=== PATIENT | female | born 1955 | race Caucasian/White ===

== ENCOUNTER → 2017-01-28 | Outpatient (CLI) | payer OTHER ==
[~2017-01-28] MED LIST: ATR20T PO; BISO1TAB6 PO; BUDE10.22 IH; CHOL2000 PO; FURO20TA4 PO; GLYB1.253 PO; HYDR-2890 PO; HYDR-3583 PO; LVT.088T PO; MELO-198 PO; METF-380 PO; MULT1CAP27 PO; OMEP40CA36 PO; POTA8TAB6 PO; REVATIO PO; RT-ALBUTEROL SULF 2.5 MG/3 ML PRE-MIX VIAL IH ONE; VLS80C PO
== END ==
LOC: RT 09:41
PROVIDERS: ATTEND Nurse Practitioner Family
DX: J42 Unspecified chronic bronchitis (principal); R06.00 Dyspnea, unspecified; D86.9 Sarcoidosis, unspecified; I27.2 Other secondary pulmonary hypertension
CPT/HCPCS: 94060; 94640; 94726; 94729

== ENCOUNTER → 2017-02-23 | Outpatient (CLI) | payer OTHER ==
[~2017-02-23] MED LIST changes: -RT-ALBUTEROL SULF 2.5 MG/3 ML PRE-MIX VIAL IH ONE
--- NOTE | 2017-02-23 18:04 | Diagnostic Imaging Report ---
EXAMINATION: AP view of the pelvis and the AP and frog lateral views of the hip joints bilaterally. INDICATION: Pelvic and right groin pain. FINDINGS: AP pelvis demonstrates minimal degenerative changes of SI joints and there is transitional lumbosacral junction with a partially sacralized L5 suggested. There are also calcifications in the left side of the pelvis which could be phlebolith. The right hip demonstrates mild degenerative changes with no significant joint space loss. The left hip demonstrates also mild degenerative changes with no joint space loss. Degenerative mild sclerosis at the symphysis pubis seen. IMPRESSION: Generally mild degenerative changes. No acute process. Dictated by: Dictated on workstation # [id number]
== END ==
LOC: RAD 14:38
PROVIDERS: ATTEND Internal Medicine
DX: M25.552 Pain in left hip (principal); M25.551 Pain in right hip; R10.30 Lower abdominal pain, unspecified
CPT/HCPCS: 73523

== ENCOUNTER → 2018-07-06 | Outpatient (CLI) | payer OTHER ==
--- NOTE | 2018-07-06 18:27 | Diagnostic Imaging Report ---
INDICATION: Routine screening. COMPARISON is made with prior mammograms from 02/05/2016 and 11/09/2012. 2-D and 3-D bilateral screening mammography was performed with CAD. Scattered fibroglandular densities are identified bilaterally. There are scattered benign-appearing calcifications bilaterally. No mass or malignant appearing microcalcifications are seen. The axillae are unremarkable. IMPRESSION: BI-RADS category 2. No mammographic features suspicious for malignancy are identified. ACR BI-RADS Category 2: Benign findings. Result letter will be mailed to the patient. Note: At least 10% of breast cancer is not imaged by mammography. Dictated by: Dictated on workstation # [id number]
== END ==
LOC: RAD 13:12
PROVIDERS: ATTEND Internal Medicine
DX: Z12.31 Encounter for screening mammogram for malignant neoplasm of breast (principal)
CPT/HCPCS: 77067

== ENCOUNTER → 2018-12-10 | Outpatient (CLI) | payer OTHER ==
--- NOTE | 2018-12-10 11:56 | Diagnostic Imaging Report ---
PROCEDURE: US abdomen complete. TECHNIQUE: Multiple real-time grayscale images were obtained over the abdomen in various projections. INDICATION: Generalized abdominal pain. COMPARISON: None available. FINDINGS: The liver is mildly enlarged measuring greater than 19 cm in length. The liver demonstrates diffusely increased echogenicity with poor acoustic transmission. No focal hepatic mass identified within limits of this exam. The gallbladder is not visualized, surgically absent per provided history. The common bile duct is unable to be visualized. The pancreas was predominantly obscured by overlying bowel gas. The spleen is borderline enlarged measuring 13.6 x 5.5 x 5.1 cm. No focal splenic mass. The abdominal aorta is obscured by overlying bowel gas. Minimally visualized portions of inferior vena cava are unremarkable. The bilateral kidneys are within normal limits in size without evidence of hydronephrosis. No significant free fluid. Negative sonographic Andersen sign. IMPRESSION: Mild hepatosplenomegaly. Fatty infiltration of the liver. Cholecystectomy. Dictated by: Dictated on workstation # [id number]
== END ==
LOC: RAD 08:05
PROVIDERS: ATTEND Internal Medicine
DX: K76.0 Fatty (change of) liver, not elsewhere classified (principal); Z90.49 Acquired absence of other specified parts of digestive tract
CPT/HCPCS: 76700

== ENCOUNTER 2019-02-25 10:25 | Outpatient (RCR) | payer OTHER ==
[2019-02-08 11:52] LABS: ABSOLUTE RETIC # 59 10e9/L (24-90); BASOPHILS % (AUTO) 0 % (0-10); EOSINOPHILS # (AUTO) 0.2 10^3/uL (0.0-0.3); EOSINOPHILS % (AUTO) 5 % (0-10); HEMATOCRIT 31 % (35-52); HEMOGLOBIN 9.9 G/DL (11.5-16.0); LYMPHOCYTES % (AUTO) 29 % (12-44); MEAN CORPUSCULAR HEMOGLOBIN 28 PG (25-34); MEAN CORPUSCULAR HGB CONC 32 G/DL (32-36); MEAN CORPUSCULAR VOLUME 90 FL (80-99); MEAN PLATELET VOLUME 10.6 FL (7.4-10.4); MONOCYTES # (AUTO) 0.3 X 10^3 (0.0-1.0); MONOCYTES % (AUTO) 9 % (0-12); NEUTROPHILS # (AUTO) 1.9 X 10^3 (1.8-7.8); NEUTROPHILS % (AUTO) 57 % (42-75); PLATELET COUNT 91 10^3/uL (130-400); RED CELL DISTRIBUTION WIDTH 14.2 % (10.0-14.5); RETICULOCYTE % 1.69 % (0.50-2.40); WHITE BLOOD COUNT 3.4 10^3/uL (4.3-11.0)
[2019-02-08 12:43] LABS: BASOPHILS % (MANUAL) 0 %; EOSINOPHILS % (MANUAL) 6 %; LYMPHOCYTES % (MANUAL) 25 %; MONOCYTES % (MANUAL) 4 %; NEUTROPHILS % (MANUAL) 65 %
[2019-02-08 12:44] LABS: ELLIPT/OVALOCYTES SLIGHT
[~2019-02-25 10:25] MED LIST changes: +LIDOCAINE 1% 20 ML (XYLOCAINE) VIAL CANCER CTR INJ ONE
== END 2019-04-10 | disposition home or self-care (01) ==
LOC: ONC 10:25
PROVIDERS: ATTEND Internal Medicine Hematology & Oncology
DX: D64.9 Anemia, unspecified (principal); D69.6 Thrombocytopenia, unspecified; D3A.090 Benign carcinoid tumor of the bronchus and lung; E11.9 Type 2 diabetes mellitus without complications; J44.9 Chronic obstructive pulmonary disease, unspecified; I10 Essential (primary) hypertension; E03.9 Hypothyroidism, unspecified; I27.20 Pulmonary hypertension, unspecified; D86.9 Sarcoidosis, unspecified; Z79.84 Long term (current) use of oral hypoglycemic drugs; Z79.899 Other long term (current) drug therapy
CPT/HCPCS: 36415; 38222; 82728; 83540; 85007; 85027; 85045; 88184; 88305; 88311; 88313; 99213; 99214

== ENCOUNTER 2019-06-07 14:51 | Outpatient (RCR) | payer OTHER ==
[2019-05-26 09:36] LABS: ABSOLUTE RETIC # 61 10e9/L (24-90); BASOPHILS % (AUTO) 1 % (0-10); EOSINOPHILS # (AUTO) 0.2 10^3/uL (0.0-0.3); EOSINOPHILS % (AUTO) 5 % (0-10); HEMATOCRIT 34 % (35-52); LYMPHOCYTES # (AUTO) 0.9 X 10^3 (1.0-4.0); LYMPHOCYTES % (AUTO) 24 % (12-44); MEAN CORPUSCULAR HEMOGLOBIN 29 PG (25-34); MEAN CORPUSCULAR HGB CONC 32 G/DL (32-36); MEAN CORPUSCULAR VOLUME 89 FL (80-99); MEAN PLATELET VOLUME 10.5 FL (7.4-10.4); MONOCYTES # (AUTO) 0.5 X 10^3 (0.0-1.0); MONOCYTES % (AUTO) 13 % (0-12); NEUTROPHILS # (AUTO) 2.2 X 10^3 (1.8-7.8); NEUTROPHILS % (AUTO) 58 % (42-75); PLATELET COUNT 87 10^3/uL (130-400); RED CELL DISTRIBUTION WIDTH 13.8 % (10.0-14.5); RETICULOCYTE % 1.62 % (0.50-2.40); WHITE BLOOD COUNT 3.8 10^3/uL (4.3-11.0)
[2019-05-26 09:59] LABS: ALBUMIN 3.8 GM/DL (3.2-4.5); BILIRUBIN,TOTAL 1.2 MG/DL (0.1-1.0); CALCIUM 8.9 MG/DL (8.5-10.1); CREATININE SERUM 1.2 MG/DL (0.60-1.30); POTASSIUM 4.2 MMOL/L (3.6-5.0); TOTAL PROTEIN 6.6 GM/DL (6.4-8.2)
[~2019-06-07 14:51] MED LIST changes: +FERRIC CARBOXYMALTOSE (CANCER) 750 MG in NS (IVPB) CANCER CENTER 250 ML IV SCH; -LIDOCAINE 1% 20 ML (XYLOCAINE) VIAL CANCER CTR INJ ONE
== END 2019-08-24 | disposition home or self-care (01) ==
LOC: ONC 14:51
PROVIDERS: ATTEND Internal Medicine Hematology & Oncology
DX: D64.9 Anemia, unspecified (principal); D69.6 Thrombocytopenia, unspecified; D3A.090 Benign carcinoid tumor of the bronchus and lung; E11.9 Type 2 diabetes mellitus without complications; J44.9 Chronic obstructive pulmonary disease, unspecified; I10 Essential (primary) hypertension; E03.9 Hypothyroidism, unspecified; I27.20 Pulmonary hypertension, unspecified; D86.9 Sarcoidosis, unspecified; Z79.84 Long term (current) use of oral hypoglycemic drugs; Z79.899 Other long term (current) drug therapy
CPT/HCPCS: 36415; 80053; 82728; 85025; 85045; 96365; 99213

== ENCOUNTER → 2020-10-12 | Outpatient (CLI) | payer OTHER ==
[~2020-10-12] MED LIST changes: -FERRIC CARBOXYMALTOSE (CANCER) 750 MG in NS (IVPB) CANCER CENTER 250 ML IV SCH
== END ==
LOC: RAD 13:40
PROVIDERS: ATTEND Internal Medicine
DX: J44.9 Chronic obstructive pulmonary disease, unspecified (principal)
CPT/HCPCS: 94761

== ENCOUNTER 2023-02-25 11:47 | Emergency (ER) | payer MEDICARE, OTHER ==
[~2023-02-25] VITALS: Ht 160 cm; Wt 79.8 kg
[2023-02-25] MEDS ORDERED: NS IV 1000 ML 1,000 ML IV STA (12:00)
--- NOTE | 2023-02-25 12:05 | ED Syncope ---
General Chief Complaint: Cardiac/General Problems Stated Complaint: HYPOTENSIVE Source of Information: Patient History of Present Illness Date Seen by Provider: Feb 25, 2023 Time Seen by Provider: 11:47 Initial Comments 67-year-old female presenting by EMS from home after having a vasovagal syncopal episode. Patient states that she had felt lightheaded and had gone to stand up when she felt like the room was spinning and she needed to sit down. The next thing she knew she was laying on the floor. She denies any injury or new pain. She denies hitting her head. She has had no nausea, vomiting, diarrhea, pain with urination, cough, shortness of breath, fever, chills. She was recently released from [facility] around February 13 after being there for almost 2 months for rehab after cervical spine surgery. She is doing physical and occupational therapy at home. She states the therapist had done more with her yesterday than usual and she was fatigued from that. She states that ever since having the cervical spine fusion and cage surgery she has run a lower blood pressure and typically gets 100-1 14 for the top number over 50s or 60s. She did have a similar vasovagal syncopal episode at while she was undergoing therapy. She denied having any chest pain or abdominal pain or feeling bad prior to the dizziness with standing and subsequent fainting. She feels back to her baseline currently and is not having any dizziness or lightheadedness as she lays in the bed. Per EMS her initial blood pressure was 66/32. Her blood pressure on arrival to the emergency department is 98/48. She has had almost 3/4 of a normal saline 1 L bag infused by the time she arrives in the ED. Timing/Prior Episodes: Single Episode Today Symptoms Prior to Episode: Lightheadedness Precipitating Factors: Standing Loss of Consciousness: Brief (Seconds) Current Symptoms: Back to Normal; No Blurred Vision, No Chest Pain, No Diaphoresis, No Dizziness, No Headache, No Injury, No Lightheadedness, No Loss of Bladder Control, No Loss of Bowel Control, No Motionless, No Nausea, No Pale, No Shallow/Rapid Breathing, No Weak/Absent Pulse, No Weakness Allergies and Home Medications Allergies Uncoded Allergies: HEBICLEANSE, FLU SHOT, MS, TAPE (Allergy, 01/27/11) Patient Home Medication List Home Medication List Reviewed: Yes Atorvastatin (Lipitor 20MG) 20 Mg Tablet, 1 EACH PO DAILY, (Reported) Entered as Reported by: SARWAT WRIGHT on 05/13/12 135 Bisoprol/Hydrochlorothiazide (Bisoprolol-Hctz 10-6.25 Mg Tab) 1 Each Tablet, 1 EACH PO DAILY, (Reported) Entered as Reported by: SARWAT WRIGHT on 05/13/12 135 Budesonide/Formoterol Fumarate (Symbicort 80-4.5 Mcg Inhaler) 10.2 Gm Hfa.aer.ad, 2 PUFF IH BID, (Reported) Entered as Reported by: SARWTA WRIGHT on 05/13/12 135 Cefdinir (Cefdinir) 300 Mg Capsule, 300 MG PO BID Prescribed by: TOREY ROLDAN on 02/25/23 134 Cholecalciferol (Vitamin D) 2,000 Unit Capsule, 2,000 UNIT PO DAILY, (Reported) Entered as Reported by: SARWAT WRIGHT on 05/13/12 135 Furosemide (Furosemide) 20 Mg Tablet, 1 EACH PO DAILY PRN, (Reported) Entered as Reported by: SARWAT WRIGHT on 05/13/12 135 Glyburide (Glyburide) 1.25 Mg Tablet, 1 EACH PO BIDAC, (Reported) Entered as Reported by: SARWAT WRIGHT on 05/13/121355 Hydrocodone Bit/Acetaminophen (Hydrocodon-Acetaminophn 10-325) 1 Each Tablet, 1 EACH PO Q4H PRN, (Reported) Entered as Reported by: SARWAT WRIGHT on 05/13/12 135 Hydrocodone Bit/Acetaminophen (Lortab 5 Mg) 1 Tab Tab, 1-2 EA PO Q4HR PRN, (Reported) Entered as Reported by: ANNE WALLS on 05/18/12 1422 Levothyroxine Sodium (Levothyroxine 88 Mcg Tab) 88 Mcg Tablet, 0.187 MG PO DAILY, (Reported) Entered as Reported by: SARWAT WRIGHT on 05/13/12 135 Meloxicam (Meloxicam) 7.5 Mg Tablet, 1 EACH PO BID, (Reported) Entered as Reported by: SARWAT WRIGHT on 05/13/121355 Metformin Hcl (Metformin 1000 Mg) 1,000 Mg Tablet, 1 EACH PO BID WITH MEALS, (Reported) Entered as Reported by: SARWAT WRIGHT on 05/13/121355 Multivitamins (Multivitamins) 1 Each Capsule, 1 EACH PO DAILY, (Reported) Entered as Reported by: SARWAT WRIGHT on 05/13/121355 Omeprazole (Omeprazole) 40 Mg Capsule.dr, 40 MG PO DAILY, (Reported) Entered as Reported by: SARWAT WRIGHT on 05/13/121355 Potassium Chloride (Klor-Con 8 Tab) 8 Meq Tablet.sa, 1 EACH PO DAILY PRN, (Reported) Entered as Reported by: SARWAT WRIGHT on 05/13/121355 Valsartan (Diovan 80 Mg) 80 Mg Tablet, 1 EACH PO DAILY, (Reported) Entered as Reported by: SARWAT WRIGHT on 05/13/121355 [Revatio] , 20 MG PO TID, (Reported) Entered as Reported by: SARWAT WRIGHT on 05/13/121355 Review of Systems Constitutional: No chills, No fever EENTM: no symptoms reported Respiratory: No short of breath Cardiovascular: No chest pain, No palpitations; syncope Gastrointestinal: No abdominal pain, No nausea, No vomiting Genitourinary: No dysuria, No frequency Musculoskeletal: other (has some chronic pain to shoulders, upper back and neck that has been constant since surgery and is not any different currently) Skin: No rash Psychiatric/Neurological: See HPI; Denies Headache Past Akbeijh-Hxxbgg-Akzice Hx Patient Social History Tobacco Use?: No Use of E-Cig and/or Vaping dev: No Substance use?: No Alcohol Use?: No Pt feels they are or have been: No Past Medical History Surgery/Hospitalization HX: neck surgery home February 13, 2023 Reproductive Disorders: No (HYST) Physical Exam Vital Signs Vital Signs - First Documented 02/25/23 11:48 Temp 35.8 Pulse 65 Resp 18 B/P (MAP) 97/52 (67) Pulse Ox 95 O2 Delivery Room Air Capillary Refill : Less Than 3 Seconds Height, Weight, BMI Height: '" Weight: lbs. oz. kg; BMI Method: General Appearance: No Apparent Distress, WD/WN HEENT: PERRL/EOMI, Pharynx Normal Neck: Full Range of Motion, Normal Inspection, Non Tender, Supple Cardiovascular: Regular Rate, Rhythm, Normal Peripheral Pulses Respiratory: Chest Non Tender, Lungs Clear, Normal Breath Sounds, No Accessory Muscle Use, No Respiratory Distress Gastrointestinal: Normal Bowel Sounds, No Pulsatile Mass, Non Tender, Soft Extremities: Normal Capillary Refill, Normal Inspection, No Pedal Edema Neurologic/Psychiatric: Alert, Oriented x3, No Motor/Sensory Deficits, Normal Mood/Affect, shingle carrier II-XII Norm as Tested Cranial Nerves: Normal Hearing, Normal Speech, PERRL Motor/Sensory: No Motor Deficit, No Sensory Deficit Skin: Normal Color, Warm/Dry Progress/Results/Core Measures Results/Orders Lab Results Laboratory Tests Test 02/25/23 11:51 02/25/23 13:12 Range/Units White Blood Count 3.1 L 4.3-11.0 10^3/uL Red Blood Count 3.50 L 3.80-5.11 10^6/uL Hemoglobin 10.6 L 11.5-16.0 g/dL Hematocrit 31 L 35-52 % Mean Corpuscular Volume 90 80-99 fL Mean Corpuscular Hemoglobin 30 25-34 pg Mean Corpuscular Hemoglobin Concent 34 32-36 g/dL Red Cell Distribution Width 14.3 10.0-14.5 % Platelet Count 51 L 130-400 10^3/uL Mean Platelet Volume 11.0 9.0-12.2 fL Immature Granulocyte % (Auto) 0 % Neutrophils (%) (Auto) 53 42-75 % Lymphocytes (%) (Auto) 32 12-44 % Monocytes (%) (Auto) 10 0-12 % Eosinophils (%) (Auto) 5 0-10 % Basophils (%) (Auto) 1 0-10 % Neutrophils # (Auto) 1.6 L 1.8-7.8 10^3/uL Lymphocytes # (Auto) 1.0 1.0-4.0 10^3/uL Monocytes # (Auto) 0.3 0.0-1.0 10^3/uL Eosinophils # (Auto) 0.1 0.0-0.3 10^3/uL Basophils # (Auto) 0.0 0.0-0.1 10^3/uL Immature Granulocyte # (Auto) 0.0 0.0-0.1 10^3/uL Percent Immature Platelet Fraction 2.8 0.0-7.6 % Sodium Level 140 135-145 MMOL/L Potassium Level 3.9 3.6-5.0 MMOL/L Chloride Level 106 98-107 MMOL/L Carbon Dioxide Level 22 21-32 MMOL/L Anion Gap 12 5-14 MMOL/L Blood Urea Nitrogen 24 H 7-18 MG/DL Creatinine 1.29 0.60-1.30 MG/DL Estimat Glomerular Filtration Rate 46 BUN/Creatinine Ratio 19 Glucose Level 215 H 70-105 MG/DL Calcium Level 9.1 8.5-10.1 MG/DL Corrected Calcium 9.7 8.5-10.1 MG/DL Total Bilirubin 0.7 0.1-1.0 MG/DL Aspartate Amino Transf (AST/SGOT) 41 H 5-34 U/L Alanine Aminotransferase (ALT/SGPT) 25 0-55 U/L Alkaline Phosphatase 76 40-136 U/L Total Protein 5.5 L 6.4-8.2 GM/DL Albumin 3.3 3.2-4.5 GM/DL Lipase 84 H 8-78 U/L Urine Color ORANGE Urine Clarity TURBID Urine pH 5.5 5-9 Urine Specific [place] >=1.030 1.016-1.022 Urine Protein 1+ H NEGATIVE Urine Glucose (UA) NEGATIVE NEGATIVE Urine Ketones NEGATIVE NEGATIVE Urine Nitrite NEGATIVE NEGATIVE Urine Bilirubin 1+ H NEGATIVE Urine Urobilinogen 1.0 < = 1.0 MG/DL Urine Leukocyte Esterase 1+ H NEGATIVE Urine RBC (Auto) NEGATIVE NEGATIVE Urine RBC 0-2 /HPF Urine WBC 5-10 H /HPF Urine Squamous Epithelial Cells 5-10 /HPF Urine Crystals NONE /LPF Urine Bacteria MODERATE H /HPF Urine Casts PRESENT /LPF Urine Hyaline Casts 0-2 H /LPF Urine Mucus NEGATIVE /LPF Urine Yeast FEW H /HPF Urine Culture Indicated YES My Orders Orders - TOREY ROLDAN MD Comprehensive Metabolic Panel (02/25/23 12:00) Lipase (02/25/23 12:00) Ua Culture If Indicated (02/25/23 12:00) Ed Iv/Invasive Line Start (02/25/23 12:00) Cbc With Automated Diff (02/25/23 12:00) Ns Iv 1000 Ml (Sodium Chloride 0.9%) (7/19/23 12:00) Orthostatic Vital Signs (Adult (02/25/23 12:58) Urine Culture (02/25/23 13:12) Ceftriaxone Iv/Im (Rocephin Iv/Im) (02/25/23 13:31) Vital Signs/I&O 02/25/23 02/25/23 02/25/23 11:48 12:57 14:25 Temp 35.8 36.0 Pulse 65 67 62 66 68 Resp 18 18 B/P (MAP) 97/52 (67) 101/48 (65) 121/55 107/45 (65) 83/42 (56) Pulse Ox 95 99 O2 Delivery Room Air Room Air Progress Progress Note #1: Progress Note Presents with diagnosis of dehydration, hypotension, electrolyte abnormality, UTI, overexertion. With patient having a low blood pressure on EMS arrival but improvement with IV fluids this seems more like a vasovagal syncopal episode due to some hydration issues. We will administer an additional liter of normal saline after the liter from EMS finishes infusing. Obtain basic labs of the complete blood count, comprehensive metabolic profile, lipase, urinalysis. Allow the patient to drink some water in addition to receiving IV fluids. Will obtain orthostatic vital signs after the fluids have infused. Provided she is continuing to improve and has no acute significant electrolyte abnormality or severe anemia on the blood work will plan on discharge to home once the fluids are done and she has impr renetta. Progress Note #2: Time: 12:37 Progress Note My personal interpretation and review of her blood count she has a slightly low white blood cell count of 3.1, mild anemia with hemoglobin of 10.6, thrombocyt openia with platelets of 51. Her comprehensive metabolic profile shows a normal sodium of 140 and potassium 3.9. She does have mild elevation of her BUN to 24 and creatinine to 1.29. This could continue to be indicative of dehydration. Her glucose was slightly elevated at 215. Her liver enzymes had looked okay with a total bilirubin of 0.7, AST of 41, ALT 25. Her lipase was upper limit of normal at 84. Her blood pressure continues to improve with IV fluids. Her blood pressure is now up to 107/64 continues to have a normal sinus rhythm with a heart rate in the 60s to 70s and oxygen 97 to 99% on room air. Awaiting urinalysis to ensure she does not have UTI that would be contributing to her episode of vasovagal syncope. 1257 With Orthostatic vital signs patient denied any dizziness or light headed sensation with changing positions. She did drop from 107 systolic to 83 systolic with standing but did not have symptoms with that. She felt back to her baseline. will try to obtain urinalysis and ensure she does not have UTI to complicate her health and this episode of what appears to be dehydration with vasovagal syncope. Progress Note #3: Time: 13:27 Progress Note Urinalysis was specific gravity greater than 1.030 and she has 1+ leukocyte esterase with 5-10 white blood cells and bacteria present. A UTI could certainly be contributing to her vasovagal syncope in addition to the dehydration. Continue to drink plenty of fluids and we will add on an antibiotic. Started with a dose of Rocephin 1 g IV here in the ED and followed up by oral cefdinir 300 mg po BID x 5 days. Encourage to drink plenty of fluids and stay well hydrated. Check back with pcp for continued concerns. Departure Impression Primary Impression: Dehydration Additional Impressions: Vasovagal syncope Acute cystitis without hematuria Disposition: HOME, SELF-CARE Condition: Improved Departure-Patient Inst. Decision time for Depature: 13:46 Referrals: MEKHI DEE DO (PCP/Family) Primary Care Physician Patient Instructions: Fainting, Adult ED, Dehydration, Adult ED, Urinary Tract Infection, Adult ED Add. Discharge Instructions: Continue to drink plenty of fluids and a balanced healthy diet. Take the full course of antibiotics for urine infection Try to get plenty of rest and keep working with your therapists for Occupation and Physical therapy. Check your blood pressure tonight before taking any medicine for blood pressure control. If your systolic blood pressure is not over 100 consider holding the blood pressure medicine for tonight. Follow up with clinic for continued concerns. All discharge instructions reviewed with patient and/or family. Voiced understanding. Scripts Cefdinir (Cefdinir) 300 Mg Capsule 300 MG PO BID for UTI for 5 Days, #10 CAP 0 Refills Prov: TOREY ROLDAN MD 02/25/23 TOREY ROLDAN MD Feb 25, 2023 12:04
[2023-02-25 12:06] LABS: BASOPHILS % (AUTO) 1 % (0-10); EOSINOPHILS # (AUTO) 0.1 10^3/uL (0.0-0.3); EOSINOPHILS % (AUTO) 5 % (0-10); HEMATOCRIT 31 % (35-52); HEMOGLOBIN 10.6 g/dL (11.5-16.0); LYMPHOCYTES % (AUTO) 32 % (12-44); MEAN CORPUSCULAR HEMOGLOBIN 30 pg (25-34); MEAN CORPUSCULAR HGB CONC 34 g/dL (32-36); MEAN CORPUSCULAR VOLUME 90 fL (80-99); MONOCYTES # (AUTO) 0.3 10^3/uL (0.0-1.0); MONOCYTES % (AUTO) 10 % (0-12); NEUTROPHILS # (AUTO) 1.6 10^3/uL (1.8-7.8); NEUTROPHILS % (AUTO) 53 % (42-75); PLATELET COUNT 51 10^3/uL (130-400); WHITE BLOOD COUNT 3.1 10^3/uL (4.3-11.0)
[2023-02-25 12:28] LABS: ALBUMIN 3.3 GM/DL (3.2-4.5); BILIRUBIN,TOTAL 0.7 MG/DL (0.1-1.0); CALCIUM 9.1 MG/DL (8.5-10.1); CREATININE SERUM 1.29 MG/DL (0.60-1.30); POTASSIUM 3.9 MMOL/L (3.6-5.0); TOTAL PROTEIN 5.5 GM/DL (6.4-8.2)
[2023-02-25 12:57] VITALS: BP_SYST 101; BP_SYST 107; BP_SYST 83; BP_DIAS 42; BP_DIAS 45; BP_DIAS 48
[2023-02-25 13:16] LABS: CLARITY,URINE TURBID; COLOR,URINE ORANGE; GLUCOSE, URINE (UA) NEGATIVE (NEGATIVE); KETONES,URINE NEGATIVE (NEGATIVE); LEUKOCYTE ESTERASE ,URINE 1+ (NEGATIVE); NITRITE,URINE NEGATIVE (NEGATIVE); PH,URINE 5.5 (5-9); PROTEIN,URINE 1+ (NEGATIVE)
[2023-02-25 13:24] LABS: BACTERIA,URINE MODERATE /HPF; HYALINE CASTS, URINE 0-2 /LPF; RBC,URINE 0-2 /HPF; YEAST,URINE FEW /HPF
[2023-02-25] MEDS ORDERED: cefTRIAXone IV/IM 1,000 MG in NS (IVPB) 50 ML IV STA (13:31)
[2023-02-25] MEDS ORDERED: CEFD300C3 PO (13:47)
[2023-02-25 14:05] LABS: BILIRUBIN,URINE 1+ (NEGATIVE)
[2023-02-25 14:25] VITALS: BP 121/55
== END 2023-02-25 14:25 | disposition home or self-care (01) ==
LOC: EDUNIT# 11:47 → ER FS 11:48
DX: E86.0 Dehydration (principal); N30.00 Acute cystitis without hematuria; R55 Syncope and collapse; D64.9 Anemia, unspecified; D69.6 Thrombocytopenia, unspecified; R79.89 Other specified abnormal findings of blood chemistry; R82.71 Bacteriuria; Z98.890 Other specified postprocedural states; R03.1 Nonspecific low blood-pressure reading
CPT/HCPCS: 36415; 80053; 81000; 83690; 85025; 87088